=== PATIENT | female | born 1985 | race Two or more races ===

== ENCOUNTER → 2020-04-05 | Emergency (ER) | payer SELFPAY ==
[~2020-04-05] VITALS: Ht 170.2 cm; Wt 72.6 kg
[~2020-04-05] MED LIST: IOHEXOL 350 MG/ML 100ML IJ ONE
[2020-04-05 11:33] LABS: Basophils # (auto) 0 10 ^3/uL (0-0.2); Basophils % (auto) 0.4 % (0.0-2.0); Eosinophils # (auto) 0 10 ^3/uL (0-0.8); Eosinophils % (auto) 0.5 % (0.0-7.0); Hematocrit 41.4 % (36.0-46.0); Hemoglobin 13.8 g/dL (12.2-16.2); Lymphocytes # (auto) 1.6 10 ^3/uL (0.4-5.4); Mean Corpuscular Hemoglobin 30.6 pg (28.0-32.0); Mean Corpuscular Hgb Conc. 33.4 g/dL (32.0-36.0); Mean Corpuscular Volume 91.5 fL (80.0-100.0); Monocytes # (auto) 0.3 10 ^3/uL (0-1.3); Monocytes % (auto) 5.5 % (0.0-12.0); Neutrophils # (auto) 3.8 10 ^3/uL (1.6-8.6); Neutrophils % (auto) 65.6 % (37.0-80.0); Nucleated Red Blood Cells % 0.1 %; Platelet Count (auto) 296 10^3/uL (140-450); Red Blood Cells 4.53 10^6/uL (4.0-5.20); Red Cell Distribution Width 13.2 % (11.8-14.3); White Blood Cell 5.7 10^3/uL (4.4-10.8)
[2020-04-05 11:52] LABS: Albumin 3.5 g/dL (3.4-5.0); Anion Gap 9 (5-15); Blood Urea Nitrogen 8 mg/dL (7-18); Calcium 8.4 mg/dL (8.5-10.1); Carbon Dioxide 23 mmol/L (21-32); Chloride 106 mmol/L (98-107); Glucose 104 mg/dL (74-106); Potassium 4.1 mmol/L (3.5-5.1); Sodium 138 mmol/L (136-145)
[2020-04-05 11:58] LABS: Alanine Aminotransferase 19 U/L (13-56); Alkaline Phosphatase 50 U/L (45-117); Aspartate Aminotransferase 14 U/L (15-37); BUN/Creatinine Ratio 12.3; Bilirubin, Total 0.4 mg/dL (0.2-1.0); GFR African American 134 mL/min; GFR Non-African American 111 mL/min; Total Protein 7.3 g/dL (6.4-8.2)
[2020-04-05 14:00] VITALS: BP 131/38
== END | disposition home or self-care (01) ==
LOC: ER 10:57
DX: R07.89 Other chest pain (principal); I10 Essential (primary) hypertension
CPT/HCPCS: 36415; 71046; 71275; 80053; 81025; 84484; 85025; 85379; 93005; 99285; Q9967

== ENCOUNTER 2024-09-27 18:14 | Inpatient (IN) | payer OTHER ==
[~2024-09-27] VITALS: Ht 175.3 cm; Wt 105.5 kg
--- NOTE | 2024-09-27 18:28 | ED.PDOC ---
History of Present Illness HPI Comments A 39 year old female presents to the ED with a chief complaint of nose bleed onset today. Patient was brought to ED by and as they arrived, patient experienced a syncope episode and carried the patient inside the ED. Patient states she was walking out her house when she tripped and fell on tile soo. She is currently altered and experiencing nose bleed as well as nose pain. BP was 78/39 upon triage. She has a past medical history of HTN. No other symptoms or modifying factors present at this time. Time Seen by MD: 18:20 Reviewed Notes: Medications, Allergies Allergies: Coded Allergies: NO KNOWN ALLERGIES (Unverified , 04/05/20) Information Source: Patient Mode of Arrival: Ambulatory Severity: Moderate Timing: Minutes Duration: Since onset Prehospital treatment: None Past Medical History PAST MEDICAL HISTORY: HTN Surgical History: FIRE PILOT History: No Pertinent FIRE PILOT History Family History Family History: No family hx of Cancer, No family hx of DM, No family hx of Heart victor manuel, Family hx of HTN Social History Smoker: Non-Smoker Alcohol: Denies ETOH Use Drugs: Denies Drug Use Lives In: Home Constitutional: denies: chills, diaphoresis, fatigue, fever, malaise, sweats, weakness, others EENTM: reports: nose bleeding, nose pain; denies: blurred vision, double vision, ear bleeding, ear discharge, ear drainage, ear pain, ear ringing, eye pain, eye redness, hearing loss, mouth pain, mouth swelling, nasal discharge, nose congestion, photophobia, tearing, throat pain, throat swelling, voice changes, others Respiratory: denies: cough, hemoptysis, orthopnea, SOB at rest, shortness of breath, SOB with excertion, stridor, wheezing, others Cardiovascular: denies: chest pain, dizzy spells, diaphoresis, Dyspnea on exertion, edema, irregular heart beat, left arm pain, lightheadedness, palpitations, PND, syncope, others Gastrointestinal: denies: abdomen distended, abdominal pain, blood streaked bowels, constipated, diarrhea, dysphagia, difficulty swallowing, hematemesis, melena, nausea, poor appetite, poor fluid intake, rectal bleeding, rectal pain, vomiting, others Genitourinary: denies: abnormal vagina bleeding, burning, dyspareunia, dysuria, flank pain, frequency, hematuria, incontinence, pain, , vagina discharge, urgency, others Neurological: reports: fainting; denies: dizziness, headache, left sided numbness, left sided weakness, numbness, paresthesia, pre-existing deficit, right sided numbness, right sided weakness, seizure, speech problems, tingling, tremors, weakness, others Musculoskeletal: denies: back pain, gout, joint pain, joint swelling, muscle pain, muscle stiffness, neck pain, others Integumetry: denies: bruises, change in color, change in hair/nails, dryness, laceration, lesions, lumps, rash, wounds, others Allergic/Immunocompromised: denies: Difficulty Healing, Frequent Infections, Hives, Itching, others Hematologic/Lymphatic: denies: anemia, blood clots, easy bleeding, easy bruising, swollen glands, others Endocrine: denies: excessive hunger, excessive sweating, excessive thirst, excessive urination, flushing, intolerance to cold, intolerance to heat, unexplained weight gain, unexplained weight loss, others Psychiatric: denies: anxiety, bipolar disorder, depression, hopeless, panic disorder, schizophrenia, sleepless, suicidal, others Unable to Obtain due to: Altered Mental Status All Other Systems: Reviewed and Negative Physical Exam General Appearance: Moderate Distress, Normal HEENT: Normal ENT Inspection, Pharynx Normal, TMs Normal, Other (Nasal bridge laceration) Neck: Full Range of Motion, Non-Tender, Normal, Normal Inspection Respiratory: Chest Non-Tender, Lungs Clear, No Accessory Muscle Use, No Respiratory Distress, Normal Breath Sounds Cardiovascular: No Edema, No JVD, No Murmur, No Gallop, Normal Peripheral Pulses, Regular Rate/Rhythm Breast Exam: Deferred Gastrointestinal: No Organomegaly, Non Tender, No Pulsatile Mass, Normal Bowel Sounds, Soft Genitalia: Deferred Pelvic: Deferred Rectal: Deferred Extremities: No calf tenderness, Normal capillary refill, Normal inspection, Normal range of motion, Non-tender, No pedal edema Musculoskeletal : Apperance: Normal Neurologic: Alert, [employer] consultant II-XII nml as Tested, No Motor Deficits, Normal Affect, Normal Mood, No Sensory Deficits Cerebellar Function: Normal Reflexes: Normal Skin: Dry, Normal Color, Warm Lymphatic: No Adenopathy Was a procedure done? Was a procedure done?: No Differential Dx Considerations may include: Intracranial hemorrhage mass lesion infarction vasovagal syncope UTI X-Ray, Labs, Meds, VS Vital Signs Date Time Temp Pulse Resp B/P (MAP) Pulse Ox O2 Delivery O2 Flow Rate FiO2 09/27/24 19:30 67 9 99 Room Air* 0 21 09/27/24 19:30 98.7 67 9 135/83 (100) 99 98.7 09/27/24 19:08 145/94 09/27/24 18:46 79 15 96 Room Air* 0 21 09/27/24 18:45 79 18 133/69 (90) 95 09/27/24 18:25 50 09/27/24 18:15 95.1 41 16 78/39 (52) 96 Lab Test 09/27/24 21:07 09/27/24 19:15 09/27/24 18:28 Range/Units Troponin I High Sensitivity < 3 L < 3 L < 3 L </=34 ng/L White Blood Count 13.8 H 4.4-10.8 10^3/uL Red Blood Count 4.66 4.0-5.20 10^6/uL Hemoglobin 13.7 12.2-16.2 g/dL Hematocrit 41.2 36.0-46.0 % Mean Corpuscular Volume 88.4 80.0-100.0 fL Mean Corpuscular Hemoglobin 29.4 28.0-32.0 pg Mean Corpuscular Hemoglobin Concent 33.2 32.0-36.0 g/dL Red Cell Distribution Width 14.2 11.8-14.3 % Platelet Count 320 140-450 10^3/uL Mean Platelet Volume 8.8 6.9-10.8 fL Neutrophils (%) (Auto) 55.7 37.0-80.0 % Lymphocytes (%) (Auto) 37.8 10.0-50.0 % Monocytes (%) (Auto) 5.5 0.0-12.0 % Eosinophils (%) (Auto) 0.6 0.0-7.0 % Basophils (%) (Auto) 0.4 0.0-2.0 % Neutrophils # (Auto) 7.7 1.6-8.6 10 ^3/uL Lymphocytes # (Auto) 5.2 0.4-5.4 10 ^3/uL Monocytes # (Auto) 0.8 0-1.3 10 ^3/uL Eosinophils # (Auto) 0.1 0-0.8 10 ^3/uL Basophils # (Auto) 0.1 0-0.2 10 ^3/uL Nucleated Red Blood Cells 0.0 % Prothrombin Time 10.9 9.3-11.8 sec Prothrombin Time INR 1.03 0.9-1.15 Activated Partial Thromboplast Time 24.1 L 24.5-34.5 SEC Sodium Level 140 136-145 mmol/L Potassium Level 3.9 3.5-5.1 mmol/L Chloride Level 106 98-107 mmol/L Carbon Dioxide Level 20 20-31 mmol/L Anion Gap 14 5-15 Blood Urea Nitrogen 12 9-23 mg/dL Creatinine 0.75 0.550-1.02 mg/dL Glomerular Filtration Rate Calc 104 >90 mL/min BUN/Creatinine Ratio 16.0 10.0-20.0 Serum Glucose 136 H 74-106 mg/dL Calcium Level 9.3 8.7-10.4 mg/dL Magnesium Level 1.8 1.6-2.6 mg/dL Total Bilirubin 0.2 0.2-1.0 mg/dL Aspartate Amino Transferase (AST) 25 13-40 U/L Alanine Aminotransferase (ALT) 25 7-40 U/L Alkaline Phosphatase 67 46-116 U/L B-Type Natriuretic Peptide 5.53 0-100 pg/mL Total Protein 6.4 5.7-8.2 g/dL Albumin 4.3 3.2-4.8 g/dL Beta HCG, Quantitative 0.4 L 1.5-4.2 mIU/mL Current Medications Medications (Trade) Dose Ordered Sig/Doni Route Start Time Stop Time Status Last Admin Sodium Chloride 1,000 ml @ 1,000 mls/hr Q1H ONCE IV 09/27/24 18:30 09/27/24 19:29 DC 09/27/24 18:30 Fentanyl Citrate 100 mcg ONCE ONCE IV 09/27/24 18:45 09/27/24 18:46 DC 09/27/24 19:08 Ondansetron HCl (Zofran) 4 mg ONCE ONCE IV 09/27/24 19:00 09/27/24 19:01 DC 09/27/24 19:[address] [address] Ph: [phone] DIAGNOSTIC IMAGING Diagnostic Imaging Report : [id number] Signed PATIENT: REYNA MARTINEZ ACCT: [id number] UNIT: [id number] : 1985 LOC: ER ROOM / BED: / AGE / SEX: 39 / F ADM STATUS: REG ER SERVICE 22 ORDERING PHYSICIAN: BRETT VILLANUEVA MD PROCEDURE(s): CS2 - CERVICAL WITHOUT CONTRAST REASON: fall ORDER NUMBER(s): [id number], ACCESSION NUMBER(s): [id number] EXAM: CT CERVICAL WITHOUT CONTRAST INDICATION: fall EXAM DATE: 09/27/2024 08:21 PM COMPARISON: None TECHNIQUE: Multiple axial CT images of the cervical spine were obtained using bone algorithm. Axial and coronal reformatting was done. Bone and soft tissue windows were reviewed. Radiation Dose Information: CT Dose: CTDI volume is 21.63 mGy. Dose-length product is 605.12 mGy*cm FINDINGS: There is reversal of the normal cervical lordosis. No acute cervical spine fracture is identified. The vertebral body heights are intact. No suspicious osseous lesions are identified. No significant degenerative changes are identified. There is no prevertebral soft tissue swelling. IMPRESSION: 1. No evidence of acute cervical spine fracture. 2. Reversal of the normal cervical lordosis, possibly positional. All CT scans at this medical facility are performed using dose modulation techniques as appropriate to a performed exam including the following: Automated exposure control was utilized; adjustment of the MA and/or KV according to patient size; and use of iterative reconstruction technique. HS:Y ATED BY: JOHANNY ALEJANDRO DO DICTATED DATE/TIME: 09/27/242048 SIGNED BY: JOHANNY ALEJANDRO DO SIGNED DATE/TIME: 09/27/242048 CC: [place] [id number] Ph: [phone] DIAGNOSTIC IMAGING Diagnostic Imaging Report : [id number] Signed PATIENT: REYNA MARTINEZ ACCT: [id number] UNIT: [id number] : 1985 LOC: ER ROOM / BED: / AGE / SEX: 39 / F ADM STATUS: REG ER SERVICE 22 ORDERING PHYSICIAN: BRETT VILLANUEVA MD PROCEDURE(s): HWOCT - HEAD WITHOUT CONTRAST REASON: syncope ORDER NUMBER(s): [id number], ACCESSION NUMBER(s): [id number] Procedure: CT HEAD WITHOUT CONTRAST Study Date and Requested Time: 09/27/2024 08:23 PM History: syncope Comparison: CT CERVICAL WITHOUT CONTRAST on DOS: 09/27/24, CT ANGIO CHEST CONTRAST on DOS: 04/05/20 Dose: CTDI: 63.47 mGy DLP: 1250.53 mGycm Technique: Multiplanar images obtained through the brain without intravenous contrast. Findings: Normal brain volume and formation. No hemorrhages, masses, mass effect, midline shift, herniation or cytotoxic edema following a large vascular territory. No intra-axial or extra-axial fluid collections. No evidence of hydrocephalus. The basal cisterns are patent. The pituitary gland, sella and parasellar regions are unremarkable. The cerebellar tonsils are in normal position. The cerebellum is unremarkable. The orbits and globes are unremarkable. Mucosal thickening of left posterior ethmoid air cell. Otherwise, the paranasal sinuses and mastoids are clear. There are no worrisome calvarial lesions. Impression: No evidence of acute intracranial abnormality. ATED BY: ADRIANA BENNETT DO DICTATED DATE/TIME: 09/27/242053 SIGNED BY: ADRIANA BENNETT DO SIGNED DATE/TIME: 09/27/242053 CC: [place] [id number] Ph: [phone] DIAGNOSTIC IMAGING Diagnostic Imaging Report : [id number] Signed PATIENT: REYNA MARTINEZ ACCT: [id number] UNIT: [id number] : 1985 LOC: ER ROOM / BED: / AGE / SEX: 39 / F ADM STATUS: REG ER SERVICE 22 ORDERING PHYSICIAN: BRETT VILLANUEVA MD PROCEDURE(s): FAC2C - MAXILLOFACIAL WITHOUT REASON: fall ORDER NUMBER(s): [id number], ACCESSION NUMBER(s): [id number] HISTORY: fall TECHNIQUE: Nonenhanced axial images through the facial bones with coronal and sagittal MPR. Radiation Dose Information: CT Dose: CTDI volume is 66.11 mGy. Dose-length product is 1428.93 mGy*cm FINDINGS: Mandible: No acute fracture Maxilla: No acute fracture. Small amount of gas in the soft tissues anterior to the maxilla. Pterygoid plates: No acute fracture Zygomatic processes: No acute fracture. Zygomatic arches: No acute fracture Orbits: No acute fracture Sinuses: No acute fracture Facial swelling: Soft tissue swelling over the bridge of the nose with minimally displaced nasal bone fractures on the right. There is a small bubble of gas in the subcutaneous tissues over the nasal bones. IMPRESSION: 1. Minimally displaced fracture nasal bone on the right. There is overlying soft tissue swelling and a small bubble of gas in the subcutaneous tissues. 2. Small amount of gas in the soft tissues anterior to the maxilla. Radiation optimization: All CT scans at this facility use at least one of these dose optimization techniques: automated exposure control mA and/or kV adjustment per patient size (includes targeted exams where dose is matched to clinical indication) or iterative reconstruction. ATED BY: RIMMA JUAN Jr., DO DICTATED DATE/TIME: 09/27/242102 SIGNED BY: RIMMA JUAN Jr., SIGNED DATE/TIME: 09/27/242102 CC: 1st troponin is three. Second troponin is three. Thirty troponin is three. EKG shows no signs of ischemia but heart rate of 50 beats per minute. White blood cell count is 13.8. CMP is normal. Patient will be admitted to the hospitalist for bradycardia with syncope. Time of 1ST Reevaluation: 18:50 Reevaluation 1ST: Unchanged Patient Education/Counseling: Diagnosis, Treatment, Prognosis Family Education/Counseling: No Family Present Departure 1 Departure Time of Disposition: 23:26 Impression: Primary Impression: Syncope Qualified Codes: R55 - Syncope and collapse Additional Impressions: Bradycardia Fall Qualified Codes: W19.XXXA - Unspecified fall, initial encounter Nasal bone fracture Qualified Codes: S02.2XXB - Fracture of nasal bones, initial encounter for open fracture Nasal laceration Qualified Codes: S01.21XA - Laceration without foreign body of nose, initial encounter Disposition: 09 ADMITTED INPATIENT Admit to: Tele Condition: Guarded Critical Care Note Critical Care Time?: Yes (35 min-critical care time only) Stability Stability form required: No I personally scribed for BRETT VILLANUEVA MD ([email or web address]) on 09/27/24 at 18:28. Electronically submitted by Mague Allen ([email or web address]). I personally scribed for BRETT VILLANUEVA MD ([email or web address]) on 09/27/24 at 21:44. Electronically submitted by Mague Allen ([email or web address]). BRETT VILLANUEVA MD Sep 27, 2024 18:28
[2024-09-27] MEDS: SODIUM CHLORIDE 0.9% 1,000 ML IV ONE (18:30)
[2024-09-27 18:46] VITALS: PULSE 79; RESP 15; O2SAT 96
[2024-09-27 18:58] LABS: Basophils # (auto) 0.1 10 ^3/uL (0-0.2); Basophils % (auto) 0.4 % (0.0-2.0); Eosinophils # (auto) 0.1 10 ^3/uL (0-0.8); Eosinophils % (auto) 0.6 % (0.0-7.0); Hematocrit 41.2 % (36.0-46.0); Hemoglobin 13.7 g/dL (12.2-16.2); Lymphocytes # (auto) 5.2 10 ^3/uL (0.4-5.4); Lymphocytes % (auto) 37.8 % (10.0-50.0); Mean Corpuscular Hemoglobin 29.4 pg (28.0-32.0); Mean Corpuscular Hgb Conc. 33.2 g/dL (32.0-36.0); Mean Corpuscular Volume 88.4 fL (80.0-100.0); Monocytes # (auto) 0.8 10 ^3/uL (0-1.3); Monocytes % (auto) 5.5 % (0.0-12.0); Neutrophils # (auto) 7.7 10 ^3/uL (1.6-8.6); Neutrophils % (auto) 55.7 % (37.0-80.0); Platelet Count (auto) 320 10^3/uL (140-450); Red Blood Cells 4.66 10^6/uL (4.0-5.20); Red Cell Distribution Width 14.2 % (11.8-14.3); White Blood Cell 13.8 10^3/uL (4.4-10.8)
[2024-09-27] MEDS: ONDANSETRON HCL 4 MG/2 ML VIAL IV ONE (19:02)
[2024-09-27] MEDS: fentaNYL CITRATE 100 MCG/2 ML VL IV ONE (19:08)
[2024-09-27 19:10] LABS: INR 1.03 (0.9-1.15); Partial Thromboplastin Time 24.1 SEC (24.5-34.5); Prothrombin Time 10.9 sec (9.3-11.8)
[2024-09-27 19:23] LABS: Alanine Aminotransferase 25 U/L (7-40); Albumin 4.3 g/dL (3.2-4.8); Alkaline Phosphatase 67 U/L (46-116); Anion Gap 14 (5-15); Aspartate Aminotransferase 25 U/L (13-40); Blood Urea Nitrogen 12 mg/dL (9-23); Calcium 9.3 mg/dL (8.7-10.4); Carbon Dioxide 20 mmol/L (20-31); Chloride 106 mmol/L (98-107); Glucose 136 mg/dL (74-106); Magnesium 1.8 mg/dL (1.6-2.6); Potassium 3.9 mmol/L (3.5-5.1); Sodium 140 mmol/L (136-145)
[2024-09-27 19:24] LABS: Bilirubin, Total 0.2 mg/dL (0.2-1.0); Total Protein 6.4 g/dL (5.7-8.2)
[2024-09-27 19:30] VITALS: PULSE 67; RESP 9; O2SAT 99
--- NOTE | 2024-09-27 20:52 | DVH ---
EXAM: CT CERVICAL WITHOUT CONTRAST INDICATION: fall EXAM DATE: 09/27/2024 08:21 PM COMPARISON: None TECHNIQUE: Multiple axial CT images of the cervical spine were obtained using bone algorithm. Axial a nd coronal reformatting was done. Bone and soft tissue windows were reviewed. Radiation Dose Information: CT Dose: CTDI volume is 21.63 mGy. Dose-length product is 605.12 mGy*cm FINDINGS: There is reversal of the normal cervical lordosis. No acute cervical spine fracture is identified. Th e vertebral body heights are intact. No suspicious osseous lesions are identified. No significant degenerative changes are identified. There is no prevertebral soft tissue swelling. IMPRESSION: 1. No evidence of acute cervical spine fracture. 2. Reversal of the normal cervical lordosis, possibly positional. All CT scans at this medical facility are performed using dose modulation techniques as appropriate to a performed exam including the following: Automated exposure control was utilized; adjustment of t he MA and/or KV according to patient size; and use of iterative reconstruction technique. HS:Y
--- NOTE | 2024-09-27 20:56 | DVH ---
Procedure: CT HEAD WITHOUT CONTRAST Study Date and Requested Time: 09/27/2024 08:23 PM History: syncope Comparison: CT CERVICAL WITHOUT CONTRAST on DOS: 09/27/24, CT ANGIO CHEST CONTRAST on DOS: 04/05/20 Dose: CTDI: 63.47 mGy DLP: 1250.53 mGycm Technique: Multiplanar images obtained through the brain without intravenous contrast. Findings: Normal brain volume and formation. No hemorrhages, masses, mass effect, midline shift, herniation or cytotoxic edema following a large v ascular territory. No intra-axial or extra-axial fluid collections. No evidence of hydrocephalus. The basal cisterns are patent. The pituitary gland, sella and parasellar regions are unremarkable. The cerebellar tonsils are in nor mal position. The cerebellum is unremarkable. The orbits and globes are unremarkable. Mucosal thickening of left posterior ethmoid air cell. Other richard, the paranasal sinuses and mastoids are clear. There are no worrisome calvarial lesions. Impression: No evidence of acute intracranial abnormality.
--- NOTE | 2024-09-27 21:05 | DVH ---
HISTORY: fall TECHNIQUE: Nonenhanced axial images through the facial bones with coronal and sagittal MPR. Radiation Dose Information: CT Dose: CTDI volume is 66.11 mGy. Dose-length product is 1428.93 mGy*cm FINDINGS: Mandible: No acute fracture Maxilla: No acute fracture. Small amount of gas in the soft tissues anterior to the maxilla. Pterygoid plates: No acute fracture Zygomatic processes: No acute fracture. Zygomatic arches: No acute fracture Orbits: No acute fracture Sinuses: No acute fracture Facial swelling: Soft tissue swelling over the bridge of the nose with minimally displaced nasal bon e fractures on the right. There is a small bubble of gas in the subcutaneous tissues over the nasal b ones. IMPRESSION: 1. Minimally displaced fracture nasal bone on the right. There is overlying soft tissue swelling and a small bubble of gas in the subcutaneous tissues. 2. Small amount of gas in the soft tissues anterior to the maxilla. Radiation optimization: All CT scans at this facility use at least one of these dose optimization estrada hniques: automated exposure control mA and/or kV adjustment per patient size (includes targeted exam s where dose is matched to clinical indication) or iterative reconstruction.
[2024-09-27] MEDS: HYDROcodone-ACET 5/325MG TAB PO ONE (23:30)
[2024-09-28] VITALS (8 sets, daily range): BP systolic 117–124; BP diastolic 69–79; PULSE 60–93; RESP 14–20; TEMP 98–98.7; O2SAT 94–99
[2024-09-28] MEDS: HYDROcodone-ACET 10/325MG TAB PO ONE (09:04)
[2024-09-28] MEDS ORDERED: ACETAMINOPHEN 325 MG TAB PO PRN (10:15)
[2024-09-28] MEDS ORDERED: NITROGLYCERIN 0.4 MG SL TAB SL PRN (10:15)
[2024-09-28] MEDS ORDERED: MORPHINE SULFATE INJ 2 MG/ml SYRG IV PRN (10:15)
[2024-09-28] MEDS ORDERED: ONDANSETRON HCL 4 MG/2 ML VIAL IV PRN (10:15)
[2024-09-28 11:33] LABS: Urine Bacteria None Seen /hpf (None Seen)
[2024-09-28 11:48] LABS: Triglycerides 110 mg/dL (< 150)
[2024-09-28 11:49] LABS: LDL Cholesterol 102 mg/dL (< 100)
[2024-09-28 11:50] LABS: Cholesterol 176 mg/dL (< 200); HDL Cholesterol 59 mg/dL (40-59)
[2024-09-28 12:05] LABS: Amphetamine Screen, Urine Neg (NEGATIVE)
[2024-09-28 12:06] LABS: Barbiturate Scree,Urine Neg (NEGATIVE); Benzodiazephine Screen, Urine Neg (NEGATIVE); Cannabinoid Screen, Urine Pos (NEGATIVE); Cocaine Screen, Urine Neg (NEGATIVE); Opiate Scree,Urine Pos (NEGATIVE); Phencyclidine Screen, Urine Neg (NEGATIVE)
--- NOTE | 2024-09-28 12:08 | DVHHP2 ---
History of Present Illness Reason for Visit: Syncope History of Present Illness 39-year-old female presented to the ED with chief complaint of nosebleed and nose laceration s/p syncope and fall. Patient states she was walking out of her home when she tripped and fell onto the stepping stones and hit her face. When patient arrived to the ED she had a syncopal episode in the waiting room and then was immediately brought into triage, patient's blood pressure was 78/39 heart rate was 41 beats per minute, a 1 L bolus was given to patient and now her blood pressure is within normal limits, Patient was pale in color at time of syncope patient was A&O x4. Patient states she has no history of low blood pressures, or bradycardia. Patient states she has had at least 1 other episode of syncope throughout her life. We will order Cardiology consult, and consider Neurology consult versus outpatient. Patient denies chest pain, headache, dizziness, diaphoresis, shortness of breath, abdominal pain, no nausea, vomiting, fever, or chills endorsed by the patient. Patient was admitted for further evaluation medical management. Past Medical History Hypertension Past Surgical History Family History Family history of hypertension Smoke: No ALCOHOL: rare Drugs: None Lives: with Family Review of Systems Constitutional: No: Fever, Chills, Sweats, Weakness, Malaise, Other Eyes: No: Pain, Vision change, Conjunctivae inflammation, Eyelid inflammation, Other, Redness ENT: Nose pain (With laceration to nasal bridge), Mouth swelling (Upper lip swelling) Respiratory: No: Cough, Dry, Shortness of breath, SOB with excertion, Wheezing, Hemoptysis, Pleuritic Pain, Sputum, Wheezing, Other Cardiovascular: No: Chest Pain, Palpitations, Orthopnea, Paroxysmal Noc. Dyspnea, Edema, Lt Headedness, Other Gastrointestinal: No: Nausea, Vomiting, Abdominal Pain, Diarrhea, Constipation, Melena, Hematochezia, Other Genitourinary: No Dysuria, No Frequency, No Incontinence, No Hematuria, No Retention, No Other Musculoskeletal: No: other, neck pain, shoulder pain, arm pain, back pain, hand pain, leg pain, foot pain Skin: No: Rash, Lesions, Jaundice, Bruising, Other Neurological: No: Weakness, Numbness, Incoordination, Change in speech, Confusion, Seizures, Other Allergies: Coded Allergies: NO KNOWN ALLERGIES (Unverified , 04/05/20) Medications Current Medications Medications Dose Ordered Sig/Doni Route Start Time Stop Time Status Last Admin Dose Admin Acetaminophen 650 mg Q6HP PRN PO 09/28/24 10:15 Acetaminophen/ Hydrocodone Bitart 1 tab Q4HP PRN PO 09/28/24 10:15 Ondansetron HCl 4 mg Q4HP PRN IV 09/28/24 10:15 Nitroglycerin 0.4 mg Q5MINP PRN SL 09/28/24 10:15 Morphine Sulfate 2 mg Q30M PRN IV 09/28/24 10:15 Sodium Chloride 10 ml Q8HR IV 09/28/24 14:00 Exam Vital Signs Vital Signs Date Time Temp Pulse Resp B/P (MAP) Pulse Ox O2 Delivery O2 Flow Rate FiO2 09/28/24 09:00 76 18 145/86 (105) 96 09/28/24 07:30 Nasal Cannula* 2 28 09/27/24 19:30 98.7 98.7 General Appearance: Alert, Oriented X3, Cooperative, No acute distress HEENT: PERRLA, EOMI, Mucous membr. moist/pink, Other (Nasal bridge laceration) Respiratory: Clear to auscultation, Normal air movement Cardiovascular: Regular rate, Normal S1, Normal S2, No murmurs Abdominal: Normal bowel sounds, Soft, No tenderness, No hepatospenomegaly, No masses Extremities: No clubbing, No cyanosis, No edema, Normal pulses, No tenderness/swelling Skin: No rashes, No breakdown, No significant lesion Neuro: Normal gait, Normal speech, Strength at 5/5 X4 ext, Normal tone, Sensation intact, Cranial nerves 3-12 NL, Reflexes 2+ Psych/Mental Status: Mental status NL, Mood NL Labs/Xrays Labs, imaging and ED notes reviewed Labs Test 09/28/24 11:11 09/28/24 06:12 09/27/24 21:07 09/27/24 18:28 Range/Units Hemoglobin A1c 5.7 <5.7 % A1C Troponin I High Sensitivity < 3 L </=34 ng/L White Blood Count 13.8 H 4.4-10.8 10^3/uL Red Blood Count 4.66 4.0-5.20 10^6/uL Hemoglobin 13.7 12.2-16.2 g/dL Hematocrit 41.2 36.0-46.0 % Mean Corpuscular Volume 88.4 80.0-100.0 fL Mean Corpuscular Hemoglobin 29.4 28.0-32.0 pg Mean Corpuscular Hemoglobin Concent 33.2 32.0-36.0 g/dL Red Cell Distribution Width 14.2 11.8-14.3 % Platelet Count 320 140-450 10^3/uL Mean Platelet Volume 8.8 6.9-10.8 fL Neutrophils (%) (Auto) 55.7 37.0-80.0 % Lymphocytes (%) (Auto) 37.8 10.0-50.0 % Monocytes (%) (Auto) 5.5 0.0-12.0 % Eosinophils (%) (Auto) 0.6 0.0-7.0 % Basophils (%) (Auto) 0.4 0.0-2.0 % Neutrophils # (Auto) 7.7 1.6-8.6 10 ^3/uL Lymphocytes # (Auto) 5.2 0.4-5.4 10 ^3/uL Monocytes # (Auto) 0.8 0-1.3 10 ^3/uL Eosinophils # (Auto) 0.1 0-0.8 10 ^3/uL Basophils # (Auto) 0.1 0-0.2 10 ^3/uL Nucleated Red Blood Cells 0.0 % Prothrombin Time 10.9 9.3-11.8 sec Prothrombin Time INR 1.03 0.9-1.15 Activated Partial Thromboplast Time 24.1 L 24.5-34.5 SEC Sodium Level 140 136-145 mmol/L Potassium Level 3.9 3.5-5.1 mmol/L Chloride Level 106 98-107 mmol/L Carbon Dioxide Level 20 20-31 mmol/L Anion Gap 14 5-15 Blood Urea Nitrogen 12 9-23 mg/dL Creatinine 0.75 0.550-1.02 mg/dL Glomerular Filtration Rate Calc 104 >90 mL/min BUN/Creatinine Ratio 16.0 10.0-20.0 Serum Glucose 136 H 74-106 mg/dL Calcium Level 9.3 8.7-10.4 mg/dL Magnesium Level 1.8 1.6-2.6 mg/dL Total Bilirubin 0.2 0.2-1.0 mg/dL Aspartate Amino Transferase (AST) 25 13-40 U/L Alanine Aminotransferase (ALT) 25 7-40 U/L Alkaline Phosphatase 67 46-116 U/L B-Type Natriuretic Peptide 5.53 0-100 pg/mL Total Protein 6.4 5.7-8.2 g/dL Albumin 4.3 3.2-4.8 g/dL Beta HCG, Quantitative 0.4 L 1.5-4.2 mIU/mL Assessment/Plan Assessment/Plan Syncope, bradycardia/hypotension Admit to telemetry Consult cardiology Consider neurology consult 1 L bolus given Nasal bone fracture CT of facial bones show minimally displaced fracture nasal bone, with overlying soft tissue swelling. Apply ice pack for swelling P.r.n. pain meds Chronic Hypertension Blood pressure pressure has normalized, Monitor BP, if patient BP greater than 150 mmHg systolic can give patient's home losartan today FEN/PPX Cardiac diet GI and VTE prophylaxis not indicated Plan discussed with: Patient My Orders Orders - SURAJ MARSHALL Procedure Category Date Status Time * Cardiology Consult CONS 09/28/24 Transmitted 10:08 Admit ADMIT 09/28/24 Transmitted 10:08 Code Status CODE 09/28/24 Transmitted 10:08 Vital Signs [facility] 09/28/24 In Process 10:08 Review Orders With [facility] 09/28/24 In Process Adm. 10:08 Up Ad Yue [facility] 09/28/24 In Process 10:08 Regular Diet DIET 09/28/24 Transmitted Lunch Acetaminophen Tablet [facility] 09/28/24 In Process (Tylenol Tablet) 10:15 Notify Of Changes [facility] 09/28/24 In Process From Base 10:08 Advance Directive [facility] 09/28/24 In Process 10:08 Basic Metabolic Panel LAB 09/29/24 Verified 04:00 Complete Blood Count LAB 09/29/24 Verified 04:00 Lipid Panel LAB 09/28/24 In Process 10:08 Patient Condition ORDERS 09/28/24 Transmitted 10:08 Allergies MANASA 09/28/24 In Process 10:08 Hydrocodone-Acet PHA 09/28/24 In Process 5/325mg Tab ([place] 10:15 Ondansetron Hcl PHA 09/28/24 In Process (Zofran) 10:15 Nitroglycerin PHA 09/28/24 In Process Sublingual (Ntrostat 10:15 Morphine Sulfate PHA 09/28/24 In Process Injection 10:15 Sodium Chloride Lock PHA 09/28/24 In Process (Saline Lock Ns) 14:00 Oxygen By Nasal RT 09/28/24 Transmitted Cannula 10:08 Stat Ekg For Chest [facility] 09/28/24 In Process Pain 10:08 Notify Of Changes [facility] 09/28/24 In Process From Base 10:08 Import/Export Specialist For [facility] 09/28/24 In Process 24 Hours 10:08 Emergency Dysrhythmia [facility] 09/28/24 In Process Protocol 10:08 Rhythm Strips Once [facility] 09/28/24 In Process Every Shift 10:08 Date of Service: Sep 28, 2024 Billing Provider: SURAJ MARSHALL Common Visit Codes: [id number] INP/OBS CARE (HIGH) SURAJ MARSHALL Sep 28, 2024 12:08
[2024-09-28 12:26] LABS: Urine Blood Negative /uL (Negative); Urine Clarity Turbid (Clear); Urine Color Light-Yellow (Yellow); Urine Mucus FEW (None Seen); Urine Protein, UAD TRACE (Negative); Urine Specific Gravity 1.022 (1.001-1.035); Urine Urobilinogen Normal (Negative); Urine WBC 2 /hpf (0 - 5)
[2024-09-28] MEDS: MAGNESIUM OXIDE 400 MG TAB PO ONE (12:30)
[2024-09-28] MEDS: SODIUM CHLOR 0.9% PF (SALINE LOCK) 10ML VIAL/SYR IV SCH (14:00)
--- NOTE | 2024-09-28 14:13 | DVHINCON2 ---
Date Seen: Sep 28, 2024 Referring Physician SALUD De Jesus Reason for Consultation Syncope History of Present Illness This is a 39-year-old female who presented to the emergency room with a chief complaint of facial trauma. The patient and at bedside report she slipped from stairs and landed on her face. Once attempting to get up she noticed some blood and experienced some dizziness with a subsequent syncopal event lasting a few seconds. She was brought into the hospital for further evaluation. Presents with obvious nasal trauma. She underwent a 12 lead electrocardiogram revealing a sinus rhythm with nonspecific ST segment depression lead III and AVF. Serial troponin levels are negative. States she frausto had multiple episodes of chest pain in the past deemed to be secondary to anxiety. Denies significant familial history for cardiovascular disease. Significant medical history includes hypertension, anxiety, cannabinoid use, and obesity. Past Medical History Past medical history reviewed. No other significant than mentioned above. Past Surgical History C-sections x3 Family History Family history reviewed. Social History UDS positive for cannabinoids. Admits to social alcohol use. Denies any use of tobacco. Allergies: Coded Allergies: NO KNOWN ALLERGIES (Unverified , 04/05/20) Home Meds Home medications reviewed. Current Medications Current Medications Medications (Trade) Dose Ordered Sig/Doni Route PRN Reason Start Time Stop Time Status Last Admin Acetaminophen (Tylenol Tablet) 650 mg Q6HP PRN PO PAIN SCALE 1-3 OR TEMP>100.4 09/28/24 10:15 Acetaminophen/ Hydrocodone Bitart (Star 5/325MG Tab) 1 tab Q4HP PRN PO MODERATE PAIN (4-6 PAIN SCALE) 09/28/24 10:15 Ondansetron HCl (Zofran) 4 mg Q4HP PRN IV NAUSEA / VOMITING 09/28/24 10:15 Nitroglycerin (Ntrostat Sublingual) 0.4 mg Q5MINP PRN SL FOR CHEST PAIN 09/28/24 10:15 Morphine Sulfate 2 mg Q30M PRN IV FOR CHEST PAIN 09/28/24 10:15 Sodium Chloride (Saline Lock Ns) 10 ml Q8HR IV 09/28/24 14:00 Review of Systems Constitutional: No symptom reported Ears, Nose, & Throat: Facial pain Eyes: No symptom reported Neurological: No symptoms reported Pulmonary/Respiratory: No symptom reported Cardiovascular: No symptom reported Gastrointestinal: No symptom reported Genitourinary: No symptom reported Musculoskeletal: No symptom reported Skin: No symptom reported Psychiatric: No symptom reported Endocrine: No symptom reported Hemotologic/Lymphatic: No symptom reported Vital Signs Vital Signs Date Time Temp Pulse Resp B/P (MAP) Pulse Ox O2 Delivery O2 Flow Rate FiO2 09/28/24 09:00 76 18 145/86 (105) 96 09/28/24 07:30 Nasal Cannula* 2 28 09/27/24 19:30 98.7 98.7 Physical Exam General Appearance: Cooperative. Well developed. Obese. In no acute distress Head Exam: Normal inspection Neck Exam: Normal inspection. Non-tender. Normal alignment Pulmonary/Respiratory: Chest non-tender. Clear bilateral breath sounds Cardiovascular/Chest: Regular rate and rhythm. S1, S2. Sinus rhythm with nonspecific ST segment depression to lead III and AVF. No murmurs. No JVD. Peripheral Pulses: 2+ Radial (R). 2+ Radial (L). 2+ Pedal (R). 2+ Pedal (L) Abdominal Exam: Normal bowel sounds. Soft. Nontender. No hepatospenomegaly. No masses Ankle Exam: Negative ankle edema Lower extremities: Negative lower extremity edema Neuro/Mental Status: A&O x4. Coherent Thoughts/Psych: Normal thought pattern. Appropriate mood and affect. Good judgement and insight Appearance: In no acute distress Skin Exam: Facial trauma including nasal bridge Labs/Diagnostic Data Labs Test 09/28/24 11:11 09/28/24 06:12 09/27/24 21:07 09/27/24 18:28 Range/Units Hemoglobin A1c 5.7 <5.7 % A1C Triglycerides Level 110 < 150 mg/dL Cholesterol Level 176 < 200 mg/dL LDL Cholesterol 102 H < 100 mg/dL HDL Cholesterol 59 40-59 mg/dL Urine Test Negative Negative Urine Opiates Screen Pos NEGATIVE Urine Fentanyl Screen Pos NEGATIVE Urine Barbiturates Screen Neg NEGATIVE Urine Phencyclidine Screen Neg NEGATIVE Urine Amphetamines Screen Neg NEGATIVE Urine Benzodiazepines Screen Neg NEGATIVE Urine Cocaine Screen Neg NEGATIVE Urine Cannabinoids Screen Pos NEGATIVE Troponin I High Sensitivity < 3 L </=34 ng/L White Blood Count 13.8 H 4.4-10.8 10^3/uL Red Blood Count 4.66 4.0-5.20 10^6/uL Hemoglobin 13.7 12.2-16.2 g/dL Hematocrit 41.2 36.0-46.0 % Mean Corpuscular Volume 88.4 80.0-100.0 fL Mean Corpuscular Hemoglobin 29.4 28.0-32.0 pg Mean Corpuscular Hemoglobin Concent 33.2 32.0-36.0 g/dL Red Cell Distribution Width 14.2 11.8-14.3 % Platelet Count 320 140-450 10^3/uL Mean Platelet Volume 8.8 6.9-10.8 fL Neutrophils (%) (Auto) 55.7 37.0-80.0 % Lymphocytes (%) (Auto) 37.8 10.0-50.0 % Monocytes (%) (Auto) 5.5 0.0-12.0 % Eosinophils (%) (Auto) 0.6 0.0-7.0 % Basophils (%) (Auto) 0.4 0.0-2.0 % Neutrophils # (Auto) 7.7 1.6-8.6 10 ^3/uL Lymphocytes # (Auto) 5.2 0.4-5.4 10 ^3/uL Monocytes # (Auto) 0.8 0-1.3 10 ^3/uL Eosinophils # (Auto) 0.1 0-0.8 10 ^3/uL Basophils # (Auto) 0.1 0-0.2 10 ^3/uL Nucleated Red Blood Cells 0.0 % Prothrombin Time 10.9 9.3-11.8 sec Prothrombin Time INR 1.03 0.9-1.15 Activated Partial Thromboplast Time 24.1 L 24.5-34.5 SEC Sodium Level 140 136-145 mmol/L Potassium Level 3.9 3.5-5.1 mmol/L Chloride Level 106 98-107 mmol/L Carbon Dioxide Level 20 20-31 mmol/L Anion Gap 14 5-15 Blood Urea Nitrogen 12 9-23 mg/dL Creatinine 0.75 0.550-1.02 mg/dL Glomerular Filtration Rate Calc 104 >90 mL/min BUN/Creatinine Ratio 16.0 10.0-20.0 Serum Glucose 136 H 74-106 mg/dL Calcium Level 9.3 8.7-10.4 mg/dL Magnesium Level 1.8 1.6-2.6 mg/dL Total Bilirubin 0.2 0.2-1.0 mg/dL Aspartate Amino Transferase (AST) 25 13-40 U/L Alanine Aminotransferase (ALT) 25 7-40 U/L Alkaline Phosphatase 67 46-116 U/L B-Type Natriuretic Peptide 5.53 0-100 pg/mL Total Protein 6.4 5.7-8.2 g/dL Albumin 4.3 3.2-4.8 g/dL Beta HCG, Quantitative 0.4 L 1.5-4.2 mIU/mL Assessment Mechanical fall injury with facial trauma Vasovagal event status post fall injury Rule out structural heart disease Prediabetes, newly diagnosed Hypertension Cannabinoid use Obesity Plan/Recommendation (Dr. Olvera) The patient with a mechanical fall injury experienced a likely vasovagal event at the sight of blood post fall injury. We will continue further cardiac evaluation with a transthoracic echocardiogram to rule out structural heart disease. She complains of episodes of chest pain for many years deemed to be secondary to anxiety by PCP. Consider an outpatient treadmill stress test if deemed to be necessary. In the setting of an unremarkable echocardiogram, there is no further cardiac workup indicated at this time. Thank you for allowing us to participate in this patient's care. Please call if you have any questions or concerns. This medical document was created using an electronic medical record system with voice recognition software and computerized dictation system. Although this document has been carefully reviewed, there might still be some phonetic and typographical errors. Occasional wrong-word or ``sound-alike substitutions may have occurred due to the inherent limitations of voice recognition software. These areas are purely typographical due to imperfections of the software programs and do not reflect any compromise in the patient's medical care. Please read the chart carefully and recognize, using context, where these substitutions have occurred. Plan discussed with: Patient, Spouse, Other Date of Service: Sep 28, 2024 Billing Provider: JUSTIN OLVERA MD Cardiology Common Codes: [id number] INP/OBS CARE (High) HELENWAYNEPJ [facility] Sep 28, 2024 14:13
[2024-09-28] MEDS: HYDROcodone-ACET 5/325MG TAB PO PRN (15:13)
[2024-09-29] VITALS (8 sets, daily range): BP systolic 114–140; BP diastolic 64–86; PULSE 63–89; RESP 16–18; TEMP 97.7–98.8; O2SAT 94–98
[2024-09-29 06:45] LABS: Basophils # (auto) 0 10 ^3/uL (0-0.2); Basophils % (auto) 0.2 % (0.0-2.0); Eosinophils # (auto) 0.1 10 ^3/uL (0-0.8); Eosinophils % (auto) 1.5 % (0.0-7.0); Hematocrit 39.9 % (36.0-46.0); Hemoglobin 13.3 g/dL (12.2-16.2); Lymphocytes # (auto) 2.6 10 ^3/uL (0.4-5.4); Lymphocytes % (auto) 33.9 % (10.0-50.0); Mean Corpuscular Hemoglobin 29.4 pg (28.0-32.0); Mean Corpuscular Hgb Conc. 33.4 g/dL (32.0-36.0); Mean Corpuscular Volume 88.1 fL (80.0-100.0); Monocytes # (auto) 0.5 10 ^3/uL (0-1.3); Monocytes % (auto) 6.7 % (0.0-12.0); Neutrophils # (auto) 4.5 10 ^3/uL (1.6-8.6); Neutrophils % (auto) 57.7 % (37.0-80.0); Platelet Count (auto) 270 10^3/uL (140-450); Red Blood Cells 4.52 10^6/uL (4.0-5.20); Red Cell Distribution Width 14.3 % (11.8-14.3); White Blood Cell 7.8 10^3/uL (4.4-10.8)
[2024-09-29 06:48] LABS: Chloride 108 mmol/L (98-107); Potassium 3.9 mmol/L (3.5-5.1); Sodium 142 mmol/L (136-145)
[2024-09-29 06:49] LABS: Anion Gap 8 (5-15); Calcium 9.1 mg/dL (8.7-10.4); Carbon Dioxide 26 mmol/L (20-31)
[2024-09-29 06:54] LABS: BUN/Creatinine Ratio 16.2 (10.0-20.0); Blood Urea Nitrogen 11 mg/dL (9-23); Glucose 103 mg/dL (74-106)
--- NOTE | 2024-09-29 09:53 | DVHPNRES ---
Progress Note Date Seen: Sep 29, 2024 Resident Creating Document: EJ LYMAN RESIDENT Medical Necessity Reason Pt with a Central, PICC or Fol: No Subjective Review of Systems Patient seen and examined at bedside. Currently has no new complaints. Objective vital signs Vital Sign Date Time Temp Pulse Resp B/P (MAP) Pulse Ox O2 Delivery O2 Flow Rate FiO2 09/29/24 08:00 76 18 95 Room Air* 0 21 09/29/24 05:00 98.4 125/79 (94) 98.4 Total Intake and Output 09/28/24 09/28/24 09/29/24 15:00 23:00 07:00 Intake Total 0 ml 900 ml Output Total 0 ml Balance 0 ml 900 ml medications Current Medications Medications Dose Ordered Sig/Doni Route Start Time Stop Time Status Last Admin Dose Admin Acetaminophen 650 mg Q6HP PRN PO 09/28/24 10:15 Acetaminophen/ Hydrocodone Bitart 1 tab Q4HP PRN PO 09/28/24 10:15 09/29/24 08:52 1 TAB Ondansetron HCl 4 mg Q4HP PRN IV 09/28/24 10:15 Nitroglycerin 0.4 mg Q5MINP PRN SL 09/28/24 10:15 Morphine Sulfate 2 mg Q30M PRN IV 09/28/24 10:15 Sodium Chloride 10 ml Q8HR IV 09/28/24 14:00 09/29/24 06:28 10 ML Examination Patient lying in bed, in no acute distress General: Lucid, afebrile, mucosae are moist. Nose and right eye excoriation, nonbleeding Cardiovascular: Normal S1 and S2. No murmurs, gallops or rubs Respiratory: Normal ventilation mechanics. Clear lung sounds on auscultation Abdomen: Soft, nontender, no organomegaly, normal bowel sounds MSK/skin: Mobilizes 4 limbs. Skin is dry and warm Neurological: Oriented in 3 spheres. No motor no sensitive deficits. Pupils are isocoric and reactive laboratory and microbiology Laboratory Tests 09/29/24 05:56 Test 09/29/24 05:56 Range/Units Serum Glucose 103 74-106 mg/dL Problem List/Assessment/Plan Problem List/Assessment/Plan Assessment Mechanical fall with no loss of consciousness injury with facial trauma Vasovagal event status post fall injury Rule out structural heart disease Prediabetes, newly diagnosed Hypertension Cannabinoid use Obesity Plan/Recommendation Mechanical fall with no loss of consciousness presenting facial injury and blood, and posteriorly presented vasovagal presyncope at the site of blood. Pending echocardiogram. If normal we will sign off. Consider outpatient treadmill stress test if deemed necessary. Discussed plan with Dr. Tucker, patient and nurses: Patient presented vasovagal event after sustaining mechanical fall with facial trauma and blood with no loss of consciousness. Preliminary echocardiogram was LVEF of approximately 55%. Consider an outpatient treadmill stress test if deemed to be necessary. In the setting of an unremarkable echocardiogram, there is no further cardiac workup indicated at this time. Thank you for allowing us to participate in this patient's care. Please call if you have any questions or concerns. Plan discussed with: Patient, Other (Nurses) Visit Coding Cardiology RES Date of Service: Sep 29, 2024 Billing Provider: JUSTIN TUCKER MD Cardiology Common Codes: 19375-EPY/OBS SAME DATE (High), [id number] CARE- EACH +30MIN EJ LYMAN RESIDENT Sep 29, 2024 09:53
--- NOTE | 2024-09-29 12:22 | ECG ---
[facility] Test Date: 2024-09-27 Test Time: 18:25:12 Pat Name: REYNA MARTINEZ Department: ER Room: [address] [place] [address] Gender: F Agronomy Technician: DR EARL: 1985 Requested By: BRETT VILLANUEVA Order Number: [id number] Reading MD: Measurements Intervals [place] Rate: 50 P: 0 SC: 0 QRS: 52 QRSD: 96 T: -8 QT: 449 QTc: 410 Interpretive Statements Junctional rhythm Borderline repolarization abnormality ST elevation, consider lateral injury Baseline wander in lead(s) II,III,aVR,aVL,aVF,V1,V2,V3,V5,V6 Please click the below link to view image of tracing.
--- NOTE | 2024-09-29 13:17 | DVHPN2 ---
Subjective Female who fell outside her home on the stairs in injured her face No syncope Changes from previous H/P or p: Changes Eyes: No Pain, No Vision change, No Conjunctivae inflammation, No Eyelid inflammation, No Other, No Redness ENT: Nose pain (With laceration to nasal bridge), Mouth swelling (Upper lip swelling) Cardiovascular: No Chest Pain, No Palpitations, No Orthopnea, No Paroxysmal Noc. Dyspnea, No Edema, No Lt Headedness, No Other Respiratory: No Cough, No Dry, No Shortness of breath, No SOB with excertion, No Wheezing, No Hemoptysis, No Pleuritic Pain, No Sputum, No Other Gastrointestinal: No Nausea, No Vomiting, No Abdominal Pain, No Diarrhea, No Constipation, No Melena, No Hematochezia, No Other Genitourinary: No Dysuria, No Frequency, No Incontinence, No Hematuria, No Retention, No Other Musculoskeletal: No other, No neck pain, No shoulder pain, No arm pain, No back pain, No hand pain, No leg pain, No foot pain Skin: No Rash, No Lesions, No Jaundice, No Bruising, No Other Objective Vitals Vital Signs Date Time Temp Pulse Resp B/P (MAP) Pulse Ox O2 Delivery O2 Flow Rate FiO2 09/29/24 12:38 98.3 89 17 140/86 (104) 97 98.3 09/29/24 08:00 Room Air* 0 21 Intake/Output Intake and Output 09/29/24 07:00 Intake Total 900 ml Output Total 0 ml Balance 900 ml Intake Oral 900 ml Output Urine Total 0 ml # Voids 2 General Appearance: Alert, Oriented X3, Cooperative Lungs: Clear to auscultation, Normal air movement Cardiovascular: Regular rate, Normal S1, Normal S2 Extremities: No edema Medications Current Medications Medications Dose Ordered Sig/Doni Route Start Time Stop Time Status Last Admin Dose Admin Acetaminophen 650 mg Q6HP PRN PO 09/28/24 10:15 Acetaminophen/ Hydrocodone Bitart 1 tab Q4HP PRN PO 09/28/24 10:15 09/29/24 08:52 1 TAB Ondansetron HCl 4 mg Q4HP PRN IV 09/28/24 10:15 Nitroglycerin 0.4 mg Q5MINP PRN SL 09/28/24 10:15 Morphine Sulfate 2 mg Q30M PRN IV 09/28/24 10:15 Sodium Chloride 10 ml Q8HR IV 09/28/24 14:00 09/29/24 06:28 10 ML Laboratory Results Laboratory Tests 09/29/24 05:56 Chemistry Test 09/29/24 05:56 Calcium Level 9.1 mg/dL (8.7-10.4) Urinalysis Test 09/28/24 06:12 Urine Color Light-yellow (Yellow) Urine Clarity Turbid (Clear) H Urine pH 7.0 (5.0-9.0) Urine Specific [place] 1.022 (1.001-1.035) Urine Protein Trace (Negative) H Urine Ketones Negative (Negative) Urine Blood Negative /uL (Negative) Urine Nitrite Negative (Negative) Urine Bilirubin Negative (Negative) Urine Urobilinogen Normal mg/dL (Negative) Urine Leukocyte Esterase Negative /uL (Negative) Urine RBC 7 /hpf (0 - 4) Urine WBC 2 /hpf (0 - 5) Urine Squamous Epithelial Cells Few /hpf (<5) Urine Bacteria None seen /hpf (None Seen) Urine Mucus Few (None Seen) Urine Glucose Normal mg/dL (Normal) Urine Test Negative (Negative) Assessment/Plan Assessment/Plan Mechanical fall with no loss of consciousness injury with facial trauma No syncope Prediabetes, diet controlled Hypertension Cannabinoid use Obesity Plan Imaging studies including CT scan of the head and maxillofacial and cervical spine are all negative except for minimally displaced fracture of the nasal bone on the right side Pain control Echocardiogram Cardiology consult Monitor overnight Discharge planning for tomorrow Plan discussed with: Patient Date of Service: Sep 29, 2024 Billing Provider: SIRIA SOUZA MD Common Visit Codes: [id number] INP/OBS CARE(HIGH) Secondary Visit Codes: [id number] CARE PLAN 30 MINUTES SIRIA SOUZA MD Sep 29, 2024 13:17
--- NOTE | 2024-09-29 14:55 | DVHSR ---
APPROVED REPORT EXAM: Two-dimensional and M-mode echocardiogram with Doppler and color Doppler. Blood Pressure: 125/79 mmHg INDICATION Abnormal EKG RISK FACTORS Height: 69, Weight: 235 DIMENSIONS LVDd4.0 (3.8-5.7cm)LA (2D)4.1 (1.9-4.0cm)Aortic Root3.5 (2.0-3.7cm) LVDs2.9 (2.5-4.0cm)LA (MM) (1.9-4.0cm)Aortic Cusp Exc2.0 (1.5-2.0cm) EF (%) 56.0 (55-70%)Rt. Atrium3.7 (1.9-4.0cm)Asc. Aorta cm IVSd1.0 (0.7-1.1cm)RV (D) (1.8-2.4cm) PWd1.2 (0.7-1.1cm) Mitral Valve MitralMitral Stenosis E wave1.11m/sMV Mean GR.mmHg A wave0.97m/sMV Peak GR.mmHg E/A ratio1.12D MVAcm2 DECEL [id number] 1/2 [id number] IVRTmsDop MVA4.26cm2 Aortic Valve Aortic ValveAortic Stenosis V11.34m/James Mean GR.mmHg LVOT Diameter1.9 (1.8-2.4cm)Doppler AVA0.00cm2 Pulmonic Valve V20.99m/s Conclusion Normal left ventricular size and dimension. Normal left ventricular systolic function with estimated ejection fraction of 60%. Normal diastolic function. Normal right ventricular size and dimension. Normal right ventricular systolic function. Normal biatrial size and dimension. Normal aortic valve structure and function. Normal mitral valve structure and function. Normal tricuspid valve structure and function. The pulmonary valve is grossly normal. No pericardial effusion.
[2024-09-29] MEDS ORDERED: LOSA-533 PO (15:11)
[2024-09-29] MEDS ORDERED: SERT25TA28 PO (15:11)
[2024-09-30 01:00] VITALS: BP 119/75; PULSE 75; RESP 17; TEMP 97.6; O2SAT 92
[2024-09-30 05:00] VITALS: BP 129/71; PULSE 77; RESP 17; TEMP 97.6; O2SAT 96
[2024-09-30 07:58] VITALS: RESP 18; O2SAT 93
[2024-09-30 08:47] VITALS: BP 118/70; PULSE 81; RESP 18; TEMP 98.4; O2SAT 93
[2024-09-30 13:20] VITALS: BP 123/82; PULSE 87; RESP 20; TEMP 98.2; O2SAT 93
[2024-09-30] MEDS: LIDOCAINE 1% HCL (LOCAL ANESTH.) INJ 20ML MDV IJ ONE (16:15)
[2024-09-30] MEDS: TETANUS IMMUNE GLOBULIN 250 UNIT/ML SYRG IM ONE (16:45)
[2024-09-30] MEDS ORDERED: AMOX500T86 PO (16:45)
[2024-09-30 17:00] VITALS: BP 140/87; PULSE 110; RESP 20; TEMP 98.7; O2SAT 95
--- NOTE | 2024-09-30 17:21 | DVHDS2 ---
Discharge Summary Date of Admission Sep 28, 2024 at 10:08 Date of Discharge: Sep 30, 2024 Admitting Diagnosis Syncope with collapse Labs/Diagnostic Data: Laboratory Results Test 09/29/24 05:56 09/28/24 11:11 09/28/24 06:12 09/27/24 21:07 White Blood Count 7.8 10^3/uL (4.4-10.8) Red Blood Count 4.52 10^6/uL (4.0-5.20) Hemoglobin 13.3 g/dL (12.2-16.2) Hematocrit 39.9 % (36.0-46.0) Mean Corpuscular Volume 88.1 fL (80.0-100.0) Mean Corpuscular Hemoglobin 29.4 pg (28.0-32.0) Mean Corpuscular Hemoglobin Concent 33.4 g/dL (32.0-36.0) Red Cell Distribution Width 14.3 % (11.8-14.3) Platelet Count 270 10^3/uL (140-450) Mean Platelet Volume 8.6 fL (6.9-10.8) Neutrophils (%) (Auto) 57.7 % (37.0-80.0) Lymphocytes (%) (Auto) 33.9 % (10.0-50.0) Monocytes (%) (Auto) 6.7 % (0.0-12.0) Eosinophils (%) (Auto) 1.5 % (0.0-7.0) Basophils (%) (Auto) 0.2 % (0.0-2.0) Neutrophils # (Auto) 4.5 10 ^3/uL (1.6-8.6) Lymphocytes # (Auto) 2.6 10 ^3/uL (0.4-5.4) Monocytes # (Auto) 0.5 10 ^3/uL (0-1.3) Eosinophils # (Auto) 0.1 10 ^3/uL (0-0.8) Basophils # (Auto) 0 10 ^3/uL (0-0.2) Nucleated Red Blood Cells 0.0 % Sodium Level 142 mmol/L (136-145) Potassium Level 3.9 mmol/L (3.5-5.1) Chloride Level 108 mmol/L (98-107) Carbon Dioxide Level 26 mmol/L (20-31) Anion Gap 8 (5-15) Blood Urea Nitrogen 11 mg/dL (9-23) Creatinine 0.68 mg/dL (0.550-1.02) Glomerular Filtration Rate Calc 114 mL/min (>90) BUN/Creatinine Ratio 16.2 (10.0-20.0) Serum Glucose 103 mg/dL (74-106) Calcium Level 9.1 mg/dL (8.7-10.4) Hemoglobin A1c 5.7 % A1C (<5.7) Triglycerides Level 110 mg/dL (< 150) Cholesterol Level 176 mg/dL (< 200) LDL Cholesterol 102 mg/dL (< 100) HDL Cholesterol 59 mg/dL (40-59) Urine Color Light-yellow (Yellow) Urine Clarity Turbid (Clear) Urine pH 7.0 (5.0-9.0) Urine Specific [place] 1.022 (1.001-1.035) Urine Protein Trace (Negative) Urine Ketones Negative (Negative) Urine Blood Negative /uL (Negative) Urine Nitrite Negative (Negative) Urine Bilirubin Negative (Negative) Urine Urobilinogen Normal mg/dL (Negative) Urine Leukocyte Esterase Negative /uL (Negative) Urine RBC 7 /hpf (0 - 4) Urine WBC 2 /hpf (0 - 5) Urine Squamous Epithelial Cells Few /hpf (<5) Urine Bacteria None seen /hpf (None Seen) Urine Mucus Few (None Seen) Urine Glucose Normal mg/dL (Normal) Urine Test Negative (Negative) Urine Opiates Screen Pos (NEGATIVE) Urine Fentanyl Screen Pos (NEGATIVE) Urine Barbiturates Screen Neg (NEGATIVE) Urine Phencyclidine Screen Neg (NEGATIVE) Urine Amphetamines Screen Neg (NEGATIVE) Urine Benzodiazepines Screen Neg (NEGATIVE) Urine Cocaine Screen Neg (NEGATIVE) Urine Cannabinoids Screen Pos (NEGATIVE) Troponin I High Sensitivity < 3 ng/L (</=34) Test 09/27/24 18:28 Prothrombin Time 10.9 sec (9.3-11.8) Prothrombin Time INR 1.03 (0.9-1.15) Activated Partial Thromboplast Time 24.1 SEC (24.5-34.5) Magnesium Level 1.8 mg/dL (1.6-2.6) Total Bilirubin 0.2 mg/dL (0.2-1.0) Aspartate Amino Transferase (AST) 25 U/L (13-40) Alanine Aminotransferase (ALT) 25 U/L (7-40) Alkaline Phosphatase 67 U/L (46-116) B-Type Natriuretic Peptide 5.53 pg/mL (0-100) Total Protein 6.4 g/dL (5.7-8.2) Albumin 4.3 g/dL (3.2-4.8) Beta HCG, Quantitative 0.4 mIU/mL (1.5-4.2) Other Laboratory Tests 09/29/24 05:56 Brief Hx & Hospital Course: History of Present Illness 39-year-old female presented to the ED with chief complaint of nosebleed and nose laceration s/p syncope and fall. Patient states she was walking out of her home when she tripped and fell onto the stepping stones and hit her face. When patient arrived to the ED she had a syncopal episode in the waiting room and then was immediately brought into triage, patient's blood pressure was 78/39 heart rate was 41 beats per minute, a 1 L bolus was given to patient and now her blood pressure is within normal limits, Patient was pale in color at time of syncope patient was A&O x4. Patient states she has no history of low blood pressures, or bradycardia. Patient states she has had at least 1 other episode of syncope throughout her life. We will order Cardiology consult, and consider Neurology consult versus outpatient. Patient denies chest pain, headache, dizziness, diaphoresis, shortness of breath, abdominal pain, no nausea, vomiting, fever, or chills endorsed by the patient. Patient was admitted for further evaluation medical management. Course of hospitalization: Patient had CT scan of the maxillofacial as well as head. Noted nasal fracture. Cervical CT negative for fracture. Patient had toxicology screen which was positive for opiates, fentanyl, cannabinoids. Patient's blood pressure has improved. She was alert and oriented x4. Patient did report having pain to her right inner thigh, with noted superficial foreign body around an area with severe redness. I myself, extracted foreign body. The area was 1st cleansed with Betadine, and using tweezers and scalpel four small incision when splinter was removed. Patient was given antibiotic therapy. Area was closed with Steri- Strips after hemostasis was obtained. She was agreeable to be discharged home and follow up with her PCP in 1-2 weeks regarding her nasal fracture. She will be continued on antibiotic therapy with Augmentin 500 mg p.o. twice a day for additional five days. Prior to being discharged he will be given a tetanus shot. All questions answered. Physical examination General: Alert and Oriented x3. No acute distress. Well-nourished. Eyes: EOMI. Anicteric. HENT: Moist mucous membranes. Lungs: Clear to auscultation bilaterally. No accessory muscle use. Cardiovascular: Regular rate and rhythm. No murmur. No JVD. Abdomen: Soft, non-tender and non-distended. No palpable masses. Extremities: No edema. Non-tender. Skin: No rashes or lesions. Warm. Neurologic: No focal neurological deficits. CN II-XII grossly intact, but not individually tested. Psychiatric: Cooperative. Appropriate mood and affect. Total time spent with patient discussing and formulating plan of care: 35 minutes. This medical document was created using an electronic medical record system with [employer] dictation system. Although this document has been carefully reviewed, there may still be some phonetic and typographical errors. These areas are purely typographical due to imperfections of the software programs, and do not reflect any compromise in the patient's medical care. Condition at Discharge: Guarded Final Diagnosis/Problems List Syncope with collapse Secondary Diagnosis: Polysubstance abuse Hypotension secondary to polysubstance abuse including fentanyl Syncope secondary to hypotension and polysubstance abuse Obesity Cellulitis to right lower extremity Discharge Disposition: Home Discharge Instruct/Medications Diet: Regular Activity: No Restrictions, As Tolerated Follow Up/Referral: PCP in 1-2 weeks Medications: Augmentin 500mg po bid x 5 days 36 Discharge Statement: "Patient was advised to return to the ER or call 911 if any headaches, dizziness, shortness of breath, chest pain, abdominal pain, bleeding, fevers, or worsening of medical condition. Patient was counseled about treatment plan, medications, possible side effects, patientverbalized understanding. All questions were answered to the best of my ability. This discharge took greater then 30 minutes in planning, reviewing documentation, counseling the patient, and discussing with other team members." ASSESSMENT ASSESSMENT Assessment Syncope with collapse Date of Service: Sep 30, 2024 Billing Provider: MERLE KONG NP Common Visit Codes: 17013-HCP/OBS DISCH DAY >30min MERLE KONG NP Sep 30, 2024 17:21
[2024-09-30] MEDS: AMOXICILLIN/CLAVUL 875 MG TAB PO ONE (18:12)
== END 2024-09-30 18:15 | disposition home or self-care (01) | DRG 908 ==
LOC: ER 18:14 → TELE 09-28 10:08 → TELE-E-ADS 09-28 10:32
PROVIDERS: ADMIT Registered Nurse General Practice; ATTEND Internal Medicine Geriatric Medicine
PROC: 0JCL0ZZ Extirpation of Matter from Right Upper Leg Subcutaneous Tissue and Fascia, Open Approach (ICD-10-PCS; principal; 2024-09-30)
DX: T40.411A Poisoning by fentanyl or fentanyl analogs, accidental (unintentional), initial encounter (principal); L03.115 Cellulitis of right lower limb; I95.9 Hypotension, unspecified; I10 Essential (primary) hypertension; S02.2XXA Fracture of nasal bones, initial encounter for closed fracture; F41.9 Anxiety disorder, unspecified; S01.21XA Laceration without foreign body of nose, initial encounter; R73.03 Prediabetes; E66.9 Obesity, unspecified; S70.351A Superficial foreign body, right thigh, initial encounter; Z82.49 Family history of ischemic heart disease and other diseases of the circulatory system; Z68.34 Body mass index [BMI] 34.0-34.9, adult; W01.0XXA Fall on same level from slipping, tripping and stumbling without subsequent striking against object, initial encounter; Y93.01 Activity, walking, marching and hiking; Y92.89 Other specified places as the place of occurrence of the external cause; Y99.8 Other external cause status
CPT/HCPCS: 36415; 70450; 70486; 72125; 80048; 80053; 80061; 80307; 81001; 81025; 83036; 83735; 83880; 84484; 84702; 85025; 85610; 85730; 93005; 93306; 99291; G0378; J2003; J2405

== ENCOUNTER 2025-04-05 20:46 | Emergency (ER) | payer OTHER ==
[~2025-04-05] VITALS: Ht 175.3 cm; Wt 105.1 kg
[~2025-04-05 20:46] MED LIST changes: +AMOX500T86 PO; -IOHEXOL 350 MG/ML 100ML IJ ONE; +LOSA-533 PO; +SERT25TA28 PO
--- NOTE | 2025-04-05 20:54 | ED.PDOC ---
HPI Comments HPI: Poor Historian. 39-year-old female presents to emergency depart for one day history of right- sided chest pain pressure worse with deep inspiration extending from the right anterior chest to the right shoulder. Pain is constant. Patient had similar pain in the past and she was told she has anxiety. She was admitted in September and had cardiac workup at that time. Patient denies any sick contacts. Denies any . While patient in triage, which she was found with a fever of 100.7 and slightly tachycardic. She was not aware of having a fever. Past Medical History: Hyperlipidemia, hypertension, anxiety depression Past Surgical History: REVIEW OF SYSTEMS: CONSTITUTIONAL: Denies acute: fever, diaphoresis, chills, generalized weakness. HEAD: Denies acute: headache, photophobia Eyes: Denies acute: Double vision, vision loss, eye pain, eye discharge. EARS: Denies acute: tinnitus, hearing loss, ear discharge, ear pain, THROAT: Denies acute: sore throat, swelling, difficulty swallowing , pain with swallowing, change in voice. NECK: Denies acute: neck pain, neck swelling, stiff neck. HEART: Denies acute : palpitations, LUNGS: Denies acute: SOB, wheezing, cough, hemoptysis ABDOMEN: Denies acute: abdominal pain, Nausea, Vomiting, diarrhea, melena , hematemesis, hematochezia SKIN: Denies acute: rash, redness, lesions, itchiness. EXTREMITIES: Denies acute: calf pain, numbness, tingling, weakness, denies pain in extremity. Denies acute: Low back pain. Neuro: Denies acute: focal neurological deficit, motor or sensory focal neurological deficit, tremors, seizure like activity, confusion, dizziness, change in mental status, loss of bowel or bladder function, cauda equina like symptoms. : Denies acute: dysuria, hematuria, flank pain, increase in urinary frequency. PSYCH: Denies acute: hallucination, suicidal ideation, homicidal ideation. FEMALE: Denies acute: abnormal vaginal bleeding, foul odor, unusual discharge. PHYSICAL EXAM: General: ----[id number]----acute distress, awake and alert. Head: normocephalic, atraumatic. Neck: supple, trachea is midline, no swelling. Throat: Normal phonation. Eyes:, no erythema, no purulent discharge, no proptosis, no icterus. Heart: regular tachycardic, no significant murmur appreciated. Lungs: no apparent respiratory distress, Able to speak in full sentences. No wheezing, no rhonchi, no crackles. No stridors Clear to auscultation bilaterally. Abdomen: non tender to palpation, non distended, soft, no guarding, no rebound, + bowel sounds. Obese Neuro: Awake, Alert, oriented to name, self, situation, follows commands GCS=15. Speech is normal. Skin: no petechia, no purpura, no cyanosis, non-pale, not jaundice. Lower extremities: --no - Pitting edema no deformity, no focal swelling, no calf TTP. Makes eye contact. moves all four extremities. Face: no apparent facial droop. Ambulating in the ED independently. ED COURSE: Time Seen by MD: 20:48 Reviewed Notes: Nurses Notes, Medications, Allergies Allergies: Coded Allergies: NO KNOWN ALLERGIES (Unverified , 04/05/20) Home Meds Active Scripts Nitrofurantoin Monohydrate Mac (Macrobid) 100 Mg Cap, 100 MG PO BID for 7 Days, #14 CAP Prov:АННА SOLANO DO 04/05/25 Amoxicillin & Pot Clavulanate (Augmentin) 500 Mg Tab, 1 TAB PO BID for 5 Days, #10 TAB Prov:MERLE KONG NP 09/30/24 Reported Medications Sertraline Hcl (Sertraline Hcl) 25 Mg Tab, 1 TAB PO DAILY for 30 Days, #30 TAB 09/29/24 Losartan Potassium (Losartan Potassium) 25 Mg Tab, 25 MG PO QAM for 30 Days, #30 MG 09/29/24 Information Source: Patient Past Medical History PAST MEDICAL HISTORY: HTN Surgical History: [employer] History: No Pertinent [employer] History Family History Family History: No family hx of Cancer, No family hx of DM, No family hx of Heart victor manuel, Family hx of HTN Social History Smoker: Non-Smoker Alcohol: Denies ETOH Use Drugs: Denies Drug Use Lives In: Home X-Ray, Labs, Meds, VS Vital Signs Date Time Temp Pulse Resp B/P (MAP) Pulse Ox O2 Delivery O2 Flow Rate FiO2 04/05/25 23:12 98.7 98 12 125/72 (89) 96 98.7 04/05/25 22:26 100.3 04/05/25 21:51 96 04/05/25 21:12 100.7 110 22 119/86 (97) 98 100.7 Lab Test 04/05/25 22:18 04/05/25 22:09 04/05/25 21:42 04/05/25 20:59 Range/Units Urine Color Light-yellow Yellow Urine Clarity Turbid H Clear Urine pH 6.5 5.0-9.0 Urine Specific [place] 1.024 1.001-1.035 Urine Protein Negative Negative Urine Ketones Negative Negative Urine Blood 1+ H Negative /uL Urine Nitrite Negative Negative Urine Bilirubin Negative Negative Urine Urobilinogen Normal Negative mg/dL Urine Leukocyte Esterase Trace Negative /uL Urine RBC 11 0 - 4 /hpf Urine Microscopic WBC 4 0-5 /HPF Urine Squamous Epithelial Cells Mod <5 /hpf Urine Bacteria None seen None Seen /hpf Urine Glucose Normal Normal mg/dL Influenza Type A Antigen Negative Negative Influenza Type B Antigen Negative Negative SARS-CoV-2 Antigen (Rapid) Negative NEGATIVE Troponin I High Sensitivity < 3 L < 3 L </=34 ng/L White Blood Count 12.6 H 4.4-10.8 10^3/uL Red Blood Count 4.65 4.0-5.20 10^6/uL Hemoglobin 13.7 12.2-16.2 g/dL Hematocrit 40.6 36.0-46.0 % Mean Corpuscular Volume 87.4 80.0-100.0 fL Mean Corpuscular Hemoglobin 29.4 28.0-32.0 pg Mean Corpuscular Hemoglobin Concent 33.7 32.0-36.0 g/dL Red Cell Distribution Width 13.8 11.8-14.3 % Platelet Count 354 140-450 10^3/uL Mean Platelet Volume 8.1 6.9-10.8 fL Neutrophils (%) (Auto) 67.2 37.0-80.0 % Lymphocytes (%) (Auto) 25.5 10.0-50.0 % Monocytes (%) (Auto) 6.4 0.0-12.0 % Eosinophils (%) (Auto) 0.5 0.0-7.0 % Basophils (%) (Auto) 0.4 0.0-2.0 % Neutrophils # (Auto) 8.5 1.6-8.6 10 ^3/uL Lymphocytes # (Auto) 3.2 0.4-5.4 10 ^3/uL Monocytes # (Auto) 0.8 0-1.3 10 ^3/uL Eosinophils # (Auto) 0.1 0-0.8 10 ^3/uL Basophils # (Auto) 0 0-0.2 10 ^3/uL Nucleated Red Blood Cells 0.0 % D-Dimer, Quantitative 0.43 0.0-0.49 mg/L FEU Sodium Level 139 136-145 mmol/L Potassium Level 4.2 3.5-5.1 mmol/L Chloride Level 106 98-107 mmol/L Carbon Dioxide Level 26 20-31 mmol/L Anion Gap 7 5-15 Blood Urea Nitrogen 12 9-23 mg/dL Creatinine 0.72 0.550-1.02 mg/dL Glomerular Filtration Rate Calc 109 >90 mL/min BUN/Creatinine Ratio 16.7 10.0-20.0 Serum Glucose 97 74-106 mg/dL Lactic Acid Level 1.5 0.4-2.0 mmol/L Calcium Level 8.9 8.7-10.4 mg/dL Magnesium Level 2.0 1.6-2.6 mg/dL Total Bilirubin 0.3 0.2-1.0 mg/dL Aspartate Amino Transferase (AST) 11 L 13-40 U/L Alanine Aminotransferase (ALT) 16 7-40 U/L Alkaline Phosphatase 71 46-116 U/L Total Protein 7.0 5.7-8.2 g/dL Albumin 4.5 3.2-4.8 g/dL Lipase 34 12-53 U/L Test 04/05/25 20:50 Range/Units Urine Test Negative Negative Current Medications Medications (Trade) Dose Ordered Sig/Doni Route Start Time Stop Time Status Last Admin Acetaminophen (Tylenol Tablet Or Capsule) 1,000 mg ONCE STAT PO 04/05/25 21:06 04/05/25 21:07 DC 04/05/25 22:26 Ceftriaxone Sodium 50 ml @ 100 mls/hr ONCE ONCE IV 04/05/25 21:30 04/05/25 21:59 DC 04/05/25 22:26 [facility] [id number] [facility] [address] Ph: [phone] DIAGNOSTIC IMAGING Diagnostic Imaging Report : [id number] Signed PATIENT: REYNA MARTINEZ ACCT: [id number] UNIT: [id number] : 1985 LOC: ER ROOM / BED: / AGE / SEX: 39 / F ADM STATUS: REG ER SERVICE 49 ORDERING PHYSICIAN: АННА SOLANO DO PROCEDURE(s): CXRP - CHEST PORTABLE REASON: cp,fever ORDER NUMBER(s): [id number], ACCESSION NUMBER(s): [id number] CHEST RADIOGRAPH Indication: cp,fever Technique: Single frontal view of the chest was obtained COMPARISON: Chest x-ray 04/05/2020 FINDINGS: Lines and Tubes: None Lungs: Clear Pleura: No effusion. No pneumothorax. Cardiomediastinal contours: Unremarkable IMPRESSION: No abnormality. ATED BY: ROCKY OLIVEIRA MD DICTATED DATE/TIME: 04/05/252147 SIGNED BY: ROCKY OLIVEIRA MD SIGNED DATE/TIME: 04/05/252147 CC: Time of 1ST Reevaluation: 23:15 Reevaluation 1ST: Improved Patient Education/Counseling: Diagnosis, Treatment Family Education/Counseling: No Family Present Comments Patient presented with the above HPI.--cardiac----workup was initiated. patient was found with the above mentioned diagnosis. the following medications were ordered: please refer to order lists of meds and tests obtained by myself Dr. Solano. Patient ED course and VS have been stabilized. Patient has been reassessed in the ED and remained in a stable condition. Pertinent incidental findings were discussed with the patient and/or family. Patient/family voices understanding and is agreeable with plan. Patient has been observed in the ED adequate length of time to insure improvement/stability. Escalation of care considered: Consideration of escalation to observation or admission Patient was found with a fever. Fever workup was initiated. Patient was found with a UTI. Patient was DISCHARGED home in a stable condition. All the reports of any imaging studies that were ordered by myself were reviewed by myself. Departure 1 Departure Time of Disposition: 21:05 Impression: Primary Impression: Chest pain Additional Impressions: Fever UTI (urinary tract infection) Disposition: HOME / SELF CARE / HOMELESS Condition: Stable Additional Instructions: Additional instructions: You MUST follow-up with your primary care/family doctor in 1 to 2 days. If you are unable to see your primary care/family doctor, please return to our emergency room for re-assessment and re-evaluation in 1 to 2 days. Return to the emergency room here in our facility or to the nearest ER [facility] if y our symptoms change or worsen. CONSULTATIONS: you MUST Follow-up for consultation as soon as possible with: -cardiology in 1-2 days. Please call for appointment. You MUST call the consultants office yourself to make an appointment. You may need to arrange that through your insurance and/or your primary/family doctor. If you are unable to see the outreach consultant in 1 to 2 days, you must return to our emergency room (or any other ER of your choice) for re-assessment and re- evaluation. Adequate fluid hydration. e-Prescriptions Nitrofurantoin Monohydrate Mac (Macrobid) 100 Mg Cap 100 MG PO BID for 7 Days, #14 CAP Prov: АННА SOLANO DO 04/05/25 Discharged With: Self Heart Score Heart Score: Heart Score Response (Comments) Value History Slightly Suspicious 0 EKG Normal 0 Age <45 0 Risk Factors 1 or 2 risk factors 1 Troponin Normal limit 0 Total 1 АННА SOLANO DO April 05, 2025 20:54
[2025-04-05 21:25] LABS: Basophils # (auto) 0 10 ^3/uL (0-0.2); Basophils % (auto) 0.4 % (0.0-2.0); Eosinophils # (auto) 0.1 10 ^3/uL (0-0.8); Eosinophils % (auto) 0.5 % (0.0-7.0); Hematocrit 40.6 % (36.0-46.0); Hemoglobin 13.7 g/dL (12.2-16.2); Lymphocytes # (auto) 3.2 10 ^3/uL (0.4-5.4); Lymphocytes % (auto) 25.5 % (10.0-50.0); Mean Corpuscular Hemoglobin 29.4 pg (28.0-32.0); Mean Corpuscular Hgb Conc. 33.7 g/dL (32.0-36.0); Mean Corpuscular Volume 87.4 fL (80.0-100.0); Monocytes # (auto) 0.8 10 ^3/uL (0-1.3); Monocytes % (auto) 6.4 % (0.0-12.0); Neutrophils # (auto) 8.5 10 ^3/uL (1.6-8.6); Neutrophils % (auto) 67.2 % (37.0-80.0); Platelet Count (auto) 354 10^3/uL (140-450); Red Blood Cells 4.65 10^6/uL (4.0-5.20); Red Cell Distribution Width 13.8 % (11.8-14.3); White Blood Cell 12.6 10^3/uL (4.4-10.8)
[2025-04-05 21:43] LABS: Alanine Aminotransferase 16 U/L (7-40); Albumin 4.5 g/dL (3.2-4.8); Alkaline Phosphatase 71 U/L (46-116); Anion Gap 7 (5-15); BUN/Creatinine Ratio 16.7 (10.0-20.0); Blood Urea Nitrogen 12 mg/dL (9-23); Calcium 8.9 mg/dL (8.7-10.4); Carbon Dioxide 26 mmol/L (20-31); Chloride 106 mmol/L (98-107); Glucose 97 mg/dL (74-106); Lipase 34 U/L (12-53); Potassium 4.2 mmol/L (3.5-5.1); Sodium 139 mmol/L (136-145)
[2025-04-05 21:44] LABS: Aspartate Aminotransferase 11 U/L (13-40); Bilirubin, Total 0.3 mg/dL (0.2-1.0)
--- NOTE | 2025-04-05 21:51 | DVH ---
CHEST RADIOGRAPH Indication: cp,fever Technique: Single frontal view of the chest was obtained COMPARISON: Chest x-ray 04/05/2020 FINDINGS: Lines and Tubes: None Lungs: Clear Pleura: No effusion. No pneumothorax. Cardiomediastinal contours: Unremarkable IMPRESSION: No abnormality.
[2025-04-05 22:18] LABS: Urine Bacteria None Seen /hpf (None Seen)
[2025-04-05] MEDS: cefTRIAXone 1GM/50ML D5W 50 ML IV ONE (22:26)
[2025-04-05] MEDS: ACETAMINOPHEN 500 MG TAB or CAP PO STA (22:26)
[2025-04-05 22:28] LABS: Urine Blood 1+ /uL (Negative); Urine Clarity Turbid (Clear); Urine Color Light-Yellow (Yellow); Urine Protein, UAD Negative (Negative); Urine Specific Gravity 1.024 (1.001-1.035); Urine Squamous Epithelial Cell MOD /hpf (<5); Urine Urobilinogen Normal (Negative); Urine WBC 4 /HPF (0-5); Urine pH 6.5 (5.0-9.0)
[2025-04-05] MEDS: KETOROLAC TROMETH 30 MG/ML 1ML VIAL IV ONE (22:45)
[2025-04-05 22:54] LABS: COVID19 ANTIGEN SOFIA FIA NEGATIVE (NEGATIVE); Rapid Influenza A Negative (Negative); Rapid Influenza B Negative (Negative)
[2025-04-05] MEDS ORDERED: NITR-87 PO (23:11)
[2025-04-06 00:39] VITALS: BP 121/74; PULSE 95; RESP 18; TEMP 98.5; O2SAT 98
--- NOTE | 2025-04-06 06:07 | ECG ---
[facility] Test Date: 2025-04-05 Test Time: 21:51:58 Pat Name: REYNA MARTINEZ Department: ER Room: Gender: F Cashiers Supervisor: KEVIN : 1985 Requested By: АННА SOLANO Order Number: [id number] Reading MD: Abdullahi Buck Measurements Intervals [place] Rate: 96 P: 11 MD: 140 QRS: 41 QRSD: 91 T: 54 QT: 347 QTc: 439 Interpretive Statements Sinus rhythm Electronically Signed On 04-09-2025 11:59:56 PDT by Abdullahi Buck Please click the below link to view image of tracing.
--- NOTE | 2025-04-06 06:07 | ECG ---
[facility] Test Date: 2025-04-05 Test Time: 20:52:16 Pat Name: REYNA MARTINEZ Department: ER Room: Gender: F Spa Receptionist: KEVIN : 1985 Requested By: АННА SOLANO Order Number: [id number] Reading MD: Abdullahi Buck Measurements Intervals [place] Rate: 107 P: 19 MI: 141 QRS: 32 QRSD: 92 T: 59 QT: 336 QTc: 449 Interpretive Statements Sinus tachycardia Low voltage, precordial leads Electronically Signed On 04-09-2025 11:59:18 PDT by Abdullahi Buck Please click the below link to view image of tracing.
== END 2025-04-06 00:47 | disposition home or self-care (01) ==
LOC: ER 20:46
DX: N39.0 Urinary tract infection, site not specified (principal); R50.9 Fever, unspecified; R07.9 Chest pain, unspecified; I10 Essential (primary) hypertension; R00.0 Tachycardia, unspecified; E78.5 Hyperlipidemia, unspecified; F41.9 Anxiety disorder, unspecified; Z79.899 Other long term (current) drug therapy; Z98.890 Other specified postprocedural states; Z20.822 Contact with and (suspected) exposure to COVID-19
CPT/HCPCS: 36415; 71045; 80053; 81001; 81025; 83605; 83690; 83735; 84484; 85025; 85379; 87040; 87426; 87804; 93005; 96365; 99285; J0696